=== PATIENT | female | born 1950 | race Caucasian/White ===

== ENCOUNTER 2018-04-28 15:25 | Observation (INO) | payer MEDICARE ==
[~2018-04-28] VITALS: Ht 160 cm; Wt 70.0 kg
[2018-04-28 16:01] LABS: BASOPHILS # (AUTO) 0.04 x10^3/uL (0-0.1); BASOPHILS % (AUTO) 1 % (0-1); EOSINOPHILS # (AUTO) 0.13 x10^3/uL (0-0.4); EOSINOPHILS % (AUTO) 2 % (1-7); LYMPHOCYTES # (AUTO) 1.83 x10^3/uL (1-3.4); LYMPHOCYTES % (AUTO) 27 % (22-44); MD NO; MEAN CORPUSCULAR HEMOGLOBIN 22.2 pg (27.0-34.8); MEAN CORPUSCULAR HGB CONC 31.7 g/dL (32.4-35.8); MEAN CORPUSCULAR VOLUME 69.9 fL (80-100); MEAN PLATELET VOLUME 7.9 fL (7.4-10.4); MONOCYTES # (AUTO) 0.43 x10^3/uL (0.2-0.8); MONOCYTES % (AUTO) 6 % (2-9); NEUTROPHILS # (AUTO) 4.48 x10^3/uL (1.8-6.8); NEUTROPHILS % (AUTO) 65 % (42-75); PLATELET COUNT 381 x10^3/uL (130-400); RED BLOOD COUNT 5.21 x10^6/uL (3.82-5.3); RED CELL DISTRIBUTION WIDTH 19.2 % (9.6-15.2)
[2018-04-28 16:13] LABS: ALBUMIN 3.7 g/dL (3.4-5.0); ANION GAP 7 mmol/L (5-15); CALCIUM 9.3 mg/dL (8.5-10.1); CHLORIDE 106 mmol/L (98-107); CREATININE 0.81 mg/dL (0.55-1.02)
[2018-04-28 16:17] LABS: TROPONIN I < 0.015 ng/mL (0.000-0.045)
[2018-04-28] MEDS ORDERED: PLEASE ENTER WEIGHT MC SCH (17:30)
[2018-04-28] MEDS ORDERED: POTASSIUM CHLORIDE 20 MEQ TAB.ER.PRT PO ONE (17:30)
[2018-04-28] MEDS ORDERED: OMEP-110 PO (17:35)
[2018-04-28] MEDS ORDERED: DEXT10TA7 PO ×2 (17:35)
[2018-04-28] MEDS ORDERED: RIZA10TA20 PO (18:09)
[2018-04-28] MEDS ORDERED: SUMA100T4 PO (18:09)
[2018-04-28] MEDS ORDERED: POTASSIUM CHLORIDE 20 MEQ TAB.ER.PRT ONE (18:19)
[2018-04-28] MEDS ORDERED: ENALAPRILAT 1.25 MG/ML, 2ML IVPush PRN (18:30)
[2018-04-28] MEDS ORDERED: ONDANSETRON 2MG/ML, 2ML IVPush PRN (18:30)
[2018-04-28] MEDS ORDERED: ONDANSETRON ODT 4 MG PO PRN (18:30)
[2018-04-28] MEDS ORDERED: NITROGLYCERIN 0.4 MG BOTTLE (25 TABS) SL PRN (18:30)
[2018-04-28] MEDS ORDERED: LABETALOL 5MG/ML, 20ML IVPush PRN (18:30)
[2018-04-28] MEDS ORDERED: DOCUSATE 100 MG CAPSULE PO PRN (18:30)
[2018-04-28] MEDS ORDERED: RIZATRIPTAN BENZOATE 10 MG PO PRN (18:30)
[2018-04-28] MEDS ORDERED: BISACODYL 10 MG SUPP PR PRN (18:30)
[2018-04-28 19:48] VITALS: BP 133/76
[2018-04-28] MEDS: ACETAMINOPHEN 325 MG TABLET PO PRN (21:06)
[2018-04-28 22:38] LABS: TROPONIN I < 0.015 ng/mL (0.000-0.045)
[2018-04-28] MEDS: SUMATRIPTAN 100 MG TABLET PO PRN (22:59)
[2018-04-29 02:28] VITALS: BP 128/80
[2018-04-29 04:27] LABS: BASOPHILS # (AUTO) 0.05 x10^3/uL (0-0.1); BASOPHILS % (AUTO) 1 % (0-1); EOSINOPHILS # (AUTO) 0.22 x10^3/uL (0-0.4); EOSINOPHILS % (AUTO) 4 % (1-7); LYMPHOCYTES # (AUTO) 2.13 x10^3/uL (1-3.4); LYMPHOCYTES % (AUTO) 39 % (22-44); MD NO; MEAN CORPUSCULAR HEMOGLOBIN 22.6 pg (27.0-34.8); MEAN CORPUSCULAR HGB CONC 32.3 g/dL (32.4-35.8); MEAN PLATELET VOLUME 8.2 fL (7.4-10.4); MONOCYTES # (AUTO) 0.39 x10^3/uL (0.2-0.8); MONOCYTES % (AUTO) 7 % (2-9); NEUTROPHILS # (AUTO) 2.74 x10^3/uL (1.8-6.8); NEUTROPHILS % (AUTO) 50 % (42-75); PLATELET COUNT 332 x10^3/uL (130-400); RED CELL DISTRIBUTION WIDTH 19.5 % (9.6-15.2)
[2018-04-29 04:33] LABS: ANION GAP 8 mmol/L (5-15); CHLORIDE 108 mmol/L (98-107)
[2018-04-29 04:37] LABS: TROPONIN I < 0.015 ng/mL (0.000-0.045)
[2018-04-29 04:44] LABS: CHOL/HDL RATIO 3.5; CHOLESTEROL, TOTAL 192 mg/dL (140-239); CREATININE 0.77 mg/dL (0.55-1.02); HDL CHOL % 29 % (28-40); HDL CHOLESTEROL (DIRECT) 55 mg/dL (40-60); LDL CHOLESTEROL,CALCULATED 97 mg/dL (54-169); LDL/HDL RATIO 1.8 (0.5-3.0); THYROID STIMULATING HORMONE 0.818 mIU/L (0.358-3.740); TRIGLYCERIDES 200 mg/dL (50-200); VLDL CHOLESTEROL 40 mg/dL (0-25)
[2018-04-29 07:52] VITALS: BP 107/74
[2018-04-29] MEDS ORDERED: OMEPRAZOLE 20 MG CAPSULE.DR PO SCH (09:00)
[2018-04-29] MEDS ORDERED: SENNA/DOCUSATE TABLET PO SCH (09:00)
[2018-04-29] MEDS: ACETAMINOPHEN 325 MG TABLET PO PRN (09:09)
[2018-04-29] MEDS: SUMATRIPTAN 100 MG TABLET PO PRN (12:40)
[2018-04-29 13:30] VITALS: BP 114/73
[2018-04-29] MEDS ORDERED: SIMV10TA3 PO (14:07)
== END 2018-04-29 16:13 | disposition home or self-care (01) ==
LOC: ED 17:24 → INTOOBSV 17:25 → EDIP 17:25 → ED 18:04 → 5SO 19:18 → DCLOUNGE 04-29 16:02
PROVIDERS: ADMIT Internal Medicine; ATTEND Internal Medicine
DX: R07.89 Other chest pain (principal); E87.6 Hypokalemia; K44.9 Diaphragmatic hernia without obstruction or gangrene; D50.9 Iron deficiency anemia, unspecified; K21.9 Gastro-esophageal reflux disease without esophagitis; M41.9 Scoliosis, unspecified; Z82.49 Family history of ischemic heart disease and other diseases of the circulatory system; Z90.710 Acquired absence of both cervix and uterus
CPT/HCPCS: 36415; 71045; 78452; 80048; 80061; 82040; 83735; 84100; 84443; 84484; 85025; 93005; 93017; 93306; 99285; A9502; C9898; G0378